=== PATIENT | male | born 1985 | race Caucasian/White ===

== ENCOUNTER 2017-03-28 08:25 | Outpatient (CLI) | payer BC ==
--- NOTE | 2017-03-29 22:24 | DIAGNOSTIC IMAGING REPORT ---
PROCEDURE: MR LOWER EXT JOINT WO CONT-LT INDICATION: OA OF LT HIP TECHNIQUE: Coronal T1 and STIR sequences through the whole pelvis. Three plane high-resolution PD and PD fat sat sequences through the left hip. COMPARISON: Left hip x-ray from the [facility] 02/25/2017. FINDINGS: Osseous structures: Slight shallow acetabular morphology. No fracture, AVN or suspicious mass. Cartilage surfaces: Mild chondromalacia . Labrum and joint capsule: No definite tear seen. No effusion. Muscles, tendons, and bursae: Normal Intrapelvic soft tissues: Normal IMPRESSION: 1. 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 No evidence of a labral tear in the absence of intraarticular contrast.
== END 2017-03-28 23:00 | disposition home or self-care (01) ==
LOC: MRI SRH 08:25
DX: M94.252 Chondromalacia, left hip (principal)